=== PATIENT | male | born 1955 | race Caucasian/White ===

== ENCOUNTER → 2019-03-11 | Outpatient (CLI) | payer BC ==
[~2019-03-11] MED LIST: REGADENOSON 0.4 MG/5 ML DISP.SYRIN. IV ONE
--- NOTE | 2019-03-12 09:05 | PCVCIMAG ---
APPROVED REPORT Study performed: 03/11/2019 15:01:46 EXAM: Comprehensive 2D, Doppler, and color-flow Echocardiogram Patient Location: Echo lab Room #: 3Status: routine BSA: 2.16 HR: 75 bpmBP: 128/76 mmHg Rhythm: NSR Other Information Study Quality: Fair Risk Factors: Cardiac Risk Factors: HTN, Hyperlipidemia Indications COPD CAD Hypertension/HDD T[place], Elevated coronary calcium 2D Dimensions IVSd: 8.67 (7-11mm)LVOT Diam: 20.81 (18-24mm) LVDd: 41.57 mm PWd: 7.44 (7-11mm)Ascending Ao: 34.90 (22-36mm) LVDs: 23.82 (25-40mm) Left Atrium: 38.29 (27-40mm) Aortic Root: 30.01 mm LV Single Plane 4CH: 63.89 % LV Single Plane 2CH: 72.45 % Biplane EF: 67.0 % Volumes Left Atrial Volume (Systole) Single Plane 4CH: 33.15 mLSingle Plane 2CH: 38.88 mL Biplane LA Volume: 37.00 mLLA ESV Index: 17.00 mL/m2 Aortic Valve AoV Peak Michael.: 1.34 m/s AO Peak Gr.: 7.18 mmHgLVOT Max P.46 mmHg LVOT Max V: 0.99 m/s KEL Vmax: 2.51 cm2 Mitral Valve E/A Ratio: 1.3 MV Decel. Time: 187.61 ms MV E Max Michael.: 0.95 m/s MV A Michael.: 0.71 m/s IVRT: 83.04 ms TDI E/Lateral E': 11.88E/Medial E': 10.56 Medial E' Michael.: 0.09 m/s Lateral E' Michael.: 0.08 m/s Pulmonary Valve PV Peak Michael.: 1.08 m/sPV Peak Gr.: 4.67 mmHg Pulmonary Vein P Vein S: 0.60 m/sP Vein A: 0.28 m/s P Vein D: 0.63 m/sP Vein A Dur.: 72.7 msec P Vein S/D Ratio: 0.95 Tricuspid Valve TR Peak Michael.: 2.67 m/s TR Peak Gr.: 28.51 mmHg TV Vmax: 0.65 m/sPA Pressure: 36.00 mmHg Left Ventricle The left ventricle is normal size. There is normal LV segmental wall motion. There is normal left ventricular wall thickness. Left ventricular systolic function is normal. The left ventricular ejection fraction is within the normal range. LVEF is 65%. Right Ventricle The right ventricle is normal size. The right ventricular systolic function is normal. Atria The left atrium size is normal. The right atrium size is normal. Aortic Valve The aortic valve is normal in structure. No aortic regurgitation is present. There is no aortic valvular stenosis. Mitral Valve The mitral valve is normal in structure. There is no mitral valve regurgitation noted. No evidence of mitral valve stenosis. Tricuspid Valve The tricuspid valve is normal in structure. Trace to mild tricuspid regurgitation with a PA pressure of 36 mmHg. Mild pulmonary hypertension. Pulmonic Valve The pulmonary valve is normal in structure. There is no pulmonic valvular regurgitation. Great Vessels The aortic root is normal in size. The ascending aorta is normal in size. Aortic arch is not well visualized. IVC is normal in size and collapses >50% with inspiration. Pericardium There is no pericardial effusion. There is no pleural effusion. <Conclusion> The left ventricle is normal size. There is normal left ventricular wall thickness. Left ventricular systolic function is normal. The right ventricle is normal size. The left atrium size is normal. The aortic valve is normal in structure. The mitral valve is normal in structure. Trace to mild tricuspid regurgitation with a PA pressure of 36 mmHg.
== END | disposition home or self-care (01) ==
LOC: PCVCIMAG 12:56
PROVIDERS: ATTEND Internal Medicine Cardiovascular Disease
DX: I07.1 Rheumatic tricuspid insufficiency (principal); J44.9 Chronic obstructive pulmonary disease, unspecified; I25.10 Atherosclerotic heart disease of native coronary artery without angina pectoris; R06.09 Other forms of dyspnea; I10 Essential (primary) hypertension; E78.2 Mixed hyperlipidemia; G47.33 Obstructive sleep apnea (adult) (pediatric); I27.20 Pulmonary hypertension, unspecified; M19.90 Unspecified osteoarthritis, unspecified site; Z88.8 Allergy status to other drugs, medicaments and biological substances; Z79.82 Long term (current) use of aspirin; Z79.899 Other long term (current) drug therapy; Z87.891 Personal history of nicotine dependence; Z72.89 Other problems related to lifestyle
CPT/HCPCS: 93306; J2785